=== PATIENT | male | born 1970 | race Caucasian/White ===

== ENCOUNTER → 2024-02-04 14:32 | Outpatient (REF) | payer OTHER, SELFPAY | LOC: RAD 14:32 | PROVIDERS: ATTENDING PHYSICIAN Internal Medicine Rheumatology; FAMILY PHYSICIAN Internal Medicine | DX: M79.671 Pain in right foot (principal); M79.672 Pain in left foot | CPT/HCPCS: 73630 ==

== ENCOUNTER → 2024-10-15 14:59 | Outpatient (REF) | payer OTHER, SELFPAY | LOC: HWRAD 14:59 | PROVIDERS: ATTENDING PHYSICIAN Internal Medicine | DX: L72.3 Sebaceous cyst (principal) | CPT/HCPCS: 76705 ==